=== PATIENT | female | born 1960 | race Caucasian/White ===

== ENCOUNTER 2016-05-30 20:26 | Emergency (ER) | payer OTHER ==
[2016-05-30] MEDS ORDERED: Ondansetron HCl/PF 4 MG/2 ML Vial ONE (20:59)
[2016-05-30 21:05] LABS: #Basophils 0.1 thou/uL (0.0-0.2); #Eosinphils 0.3 thou/uL (0.0-0.7); #Lymphocytes 2.8 thou/uL (1.20-3.40); #Monocytes 0.9 thou/uL (0.11-0.59); #Neutrophils 7.4 thou/uL (1.40-6.50); %Basophils 0.8 % (0.0-1.0); %Eosinophils 2.8 % (0.0-10.0); %Lymphocytes 24.6 % (21.0-51.0); %Monocytes 7.4 % (0.0-10.0); %Neutrophils 64.4 % (42.0-75.0); Hemoglobin 15.2 g/dL (12.0-16.0); Mean Corpuscular HGB CONC 36.1 g/dL (32.0-36.0); Mean Corpuscular Hemoglobin 32.8 pg (27.0-31.0); Mean Platelet Volume 9.4 fL (7.4-10.4); Platelet Count 182 thou/uL (130-400); Red Blood Cell (RBC) Count 4.64 mill/uL (4.20-5.40); White Blood Cell (WBC) Count 11.5 thou/uL (4.8-10.8)
[2016-05-30 21:26] LABS: ALT (SGPT) 13 U/L (0-55); AST (SGOT) 14 U/L (5-34); Albumin 4.2 g/dL (3.5-5.0); Alkaline Phosphatase 92 U/L (40-150); Anion Gap 14 mmol/L (10-20); BUN (Urea Nitrogen) 15 mg/dL (9.8-20.1); Bilirubin, Total 0.3 mg/dL (0.2-1.2); Calc. Creatinine Clearance 0 mL/min (70-130); Calcium 9.4 mg/dL (7.8-10.44); Carbon Dioxide 24 mmol/L (22-29); Chloride 107 mmol/L (98-107); Estimated GFR-MDRD 72; Glucose 110 mg/dL (70-105); Protein, Total 7.2 g/dL (6.0-8.3); Sodium 141 mmol/L (136-145)
[2016-05-30 21:32] LABS: CKMB 0.9 ng/mL (0-6.6); Troponin I Less than 0.010 ng/mL (< 0.028)
--- NOTE | 2016-05-30 21:49 | RAD ---
TWO VIEWS CHEST 05/30/16 HISTORY: Pain radiating to right shoulder and back. PA and lateral views of the chest is obtained. The lungs are well aerated. No evidence of active in trathoracic disease seen. No evidence of effusions, pneumonia or pneumothorax seen. IMPRESSION: Unremarkable two views chest. POS: [facility]
[2016-05-30] MEDS ORDERED: Cyclobenzaprine 10 MG TAB ONE (22:09)
--- NOTE | 2016-05-30 22:15 | CT ---
CONTRAST ENHANCED CTA CAROTIDS 05/30/16 HISTORY: Right jaw pain into shoulder. Contrast enhanced CTA of the carotids and neck is performed. The aortic arch, the visualized portion s is unremarkable. the right brachiocephalic artery is patent. The patient has a bovine left common carotid artery which originates from the right brachiocephalic. The right and left common carotid ar teries are patent. There is approximately 50% stenosis in the proximal most portion of the right ICA with some post stenotic dilatation seen. The rest of the right ICA is patent. The left common and internal carotid arteries are patent. The vertebral arteries bilaterally are pat ent. Incidentally noted multiple thyroid nodules or lesions also seen. IMPRESSION: Approximately 50% proximal right ICA stenosis. POS: [facility]
== END 2016-05-30 22:50 | disposition home or self-care (01) ==
LOC: NAV ERS 20:26
DX: S16.1XXA Strain of muscle, fascia and tendon at neck level, initial encounter (principal); S29.012A Strain of muscle and tendon of back wall of thorax, initial encounter; F32.9 Major depressive disorder, single episode, unspecified; F17.210 Nicotine dependence, cigarettes, uncomplicated; X58.XXXA Exposure to other specified factors, initial encounter
CPT/HCPCS: 70498; 71020; 80053; 82553; 84484; 85025; 93005; 96374; 96375; J1170; J2405

== ENCOUNTER 2020-01-07 14:28 | Emergency (ER) | payer OTHER ==
[~2020-01-07 14:28] MED LIST: Iopamidol 370 76% 100 ML VIAL ONE
[2020-01-07 15:04] LABS: #Basophils 0.1 thou/uL (0.0-0.2); #Lymphocytes 1.4 thou/uL (1.20-3.40); #Monocytes 0.5 thou/uL (0.11-0.59); #Neutrophils 9.1 thou/uL (1.40-6.50); %Basophils 0.7 % (0.0-1.0); %Eosinophils 0.4 % (0.0-10.0); %Lymphocytes 12.7 % (21.0-51.0); %Monocytes 4.6 % (0.0-10.0); %Neutrophils 81.6 % (42.0-75.0); Hemoglobin 15.6 g/dL (12.0-16.0); Mean Corpuscular Hemoglobin 31.9 pg (27.0-31.0); Mean Corpuscular Volume 96.8 fL (78.0-98.0); Mean Platelet Volume 8.5 fL (7.4-10.4); Platelet Count 234 thou/uL (130-400); Red Blood Cell (RBC) Count 4.89 mill/uL (4.20-5.40); White Blood Cell (WBC) Count 11.2 thou/uL (4.8-10.8)
[2020-01-07 15:16] LABS: ALT (SGPT) 481 U/L (8-55); AST (SGOT) 599 U/L (5-34); Albumin 4.3 g/dL (3.5-5.0); Alkaline Phosphatase 279 U/L (40-110); Anion Gap 17 mmol/L (10-20); BUN (Urea Nitrogen) 13 mg/dL (9.8-20.1); Bilirubin, Total 1.6 mg/dL (0.2-1.2); Calc. Creatinine Clearance 0 mL/min (70-130); Calcium 9.4 mg/dL (7.8-10.44); Carbon Dioxide 24 mmol/L (22-29); Chloride 105 mmol/L (98-107); Estimated GFR-MDRD 71; Globulin 3.1 g/dL (2.4-3.5); Glucose 216 mg/dL (70-105); Potassium 4.2 mmol/L (3.5-5.1); Protein, Total 7.4 g/dL (6.0-8.3); Sodium 142 mmol/L (136-145)
--- NOTE | 2020-01-07 15:23 | RAD ---
XR Chest 1 View Portable HISTORY: Sepsis COMPARISON: 05/30/2016 FINDINGS: The heart size is normal. The lungs are well expanded without focal areas of consolidation, pneumothorax or pleural effusions. IMPRESSION: No radiographic evidence of acute cardiopulmonary process.
[2020-01-07 15:29] LABS: Bilirubin Small (Negative); Blood, Urine Trace (Negative); Glucose, Urine (Dipstick) 100 mg/dL (Negative); Ketone, Urine 15 mg/dL (Negative); Leukocyte Negative (Negative); Nitrite Negative (Negative); Protein, Urine (Dipstick) Trace mg/dL (Neg-Trace); Specific Gravity, Urine 1.025 (1.005-1.030); Urobilinogen 0.2 mg/dL (Less than 2)
[2020-01-07 15:30] LABS: Clarity SL HAZY (Clear)
[2020-01-07] MEDS ORDERED: Sodium Chloride 0.9% 2,000 ML ONE (15:31)
[2020-01-07] MEDS ORDERED: Promethazine HCl 25 MG/ML VIAL ONE (15:31)
[2020-01-07] MEDS ORDERED: Sodium Chloride 0.9% 100 ML ONE (15:48)
[2020-01-07] MEDS ORDERED: Piperacillin/Tazobactam 4.5 GM VIAL ONE (15:48)
[2020-01-07 16:02] LABS: RBC/HPF 0-3 HPF (0-3)
[2020-01-07 16:17] LABS: Lipase 4035 U/L (8-78)
[2020-01-07] MEDS ORDERED: Morphine 4 MG/ML VIAL ONE (16:31)
--- NOTE | 2020-01-07 17:05 | CT ---
EXAM: CT ANGIOGRAM CHEST WITH 3D RENDERING: ABDOMEN AND PELVIC CT SCAN WITH IV CONTRAST: 01/07/20 HISTORY: Elevated D-dimer, nausea and vomiting, cough, umbilical pain. FINDINGS: there is an approximately 2.7 cm diameter nodule in the left lobe of the thyroid. There is adequate o pacification of the pulmonary arteries. No evidence for pulmonary embolism. No evidence for thoracic aortic aneurysm or dissection. No pleural effusion or pericardial effusion. No significant acute pulm onary parenchymal process. There are some very small subtle chronic changes of emphysema noted bilate rally. ABDOMEN AND PELVIC CT SCAN WITH IV CONTRAST: There is hepatomegaly. Marked common bile duct dilatation up to 1.7 cm. Dilated intrahepatic ducts. H epatomegaly. No evidence of gallstones or gallbladder wall thickening. Fairly extensive fat stranding around the pancreas and fluid and edema evidence for acute pancreatitis. No significant acute proces s in the spleen. No renal calculus or acute obstruction. No evidence for large or small bowel obst ruction. Normal appearing appendix. Somewhat empty appearing left and sigmoid colon. No evidence for abdominal aortic aneurysm or dissection. IMPRESSION: 1. No convincing CT evidence for acute pulmonary embolism. 2. No evidence for thoracic or abdominal aortic aneurysm or dissection. 3. Very minimal chronic bullous changes in the lungs. 4. Evidence for fairly extensive acute pancreatitis. 5. Very marked dilatation of the common bile duct and central intrahepatic ducts. Consider nonem ergent follow-up MRCP in that regard. 6. No evidence for other significant acute process in the abdomen. POS: [facility]
[2020-01-07] MEDS ORDERED: Dextrose 5 %-0.45 % NaCl 1,000 ML ONE (17:30)
== END 2020-01-07 17:51 | disposition short-term general hospital (02) ==
LOC: NAV ERS 14:28
DX: K85.90 Acute pancreatitis without necrosis or infection, unspecified (principal); T68.XXXA Hypothermia, initial encounter; F32.9 Major depressive disorder, single episode, unspecified; F17.210 Nicotine dependence, cigarettes, uncomplicated; Z79.899 Other long term (current) drug therapy
CPT/HCPCS: 71045; 71275; 74177; 80053; 81003; 81015; 83605; 83690; 85025; 85379; 87040; 87086; 96365; 96374; J2270; J2543; J2550; J3490; J7042; J7050; Q9967